=== PATIENT | female | born 1950 | race Caucasian/White ===

== ENCOUNTER 2023-05-03 06:00 | Day surgery (SDC) | payer MEDICARE, OTHER ==
[2023-04-26 14:36] VITALS: BP 145/84
[~2023-05-03] VITALS: Ht 165.1 cm; Wt 76.4 kg
--- NOTE | ~2023-05-03 | OR ---
[facility] [address] [place], [place] [address] Draft DATE OF OPERATION: 05/03/2023 SURGEON: Garrett Zazueta DPM PREOPERATIVE DIAGNOSES: 1. Mechanical complication of internal fixation or displaced screws of the right foot. 2. Malunion, displaced fracture of the first metatarsal bone. POSTOPERATIVE DIAGNOSES: 1. Mechanical complication of internal fixation or displaced screws of the right foot. 2. Malunion, displaced fracture of the first metatarsal bone. PROCEDURE: 1. Removal of deep internal fixation devices. 2. ORIF of first metatarsal malunion fracture with locking screws and plate. [employer]SPORT DRIVER: Jamil Anaya DPM. ANESTHESIA: Local with MAC consisting of 10 mL of 0.5% ropivacaine and 2% lidocaine plain injected about the patient's right first metatarsal. HEMOSTASIS: With an ankle tourniquet. ESTIMATED BLOOD LOSS: Less than 5 mL or minimal. MATERIALS USED: Optium DBM putty 1 mL. 2.5 Kathia locking plate with screws of various length. 3-0 Vicryl, 4-0 Vicryl, 5-0 nylon. PROCEDURE IN DETAIL: The patient was brought into the operating room and placed upon the operating table in the supine position. After IV sedation, the above local anesthesia was administered around the patient's right medial foot. The right foot was then scrubbed, prepped, and draped in the usual sterile technique. Esmarch bandage was then utilized to exsanguinate the patient's right foot and then left wrapped around the ankle to act as tourniquet. Attention was then directed to the dorsal medial aspect of the first PATIENT NAME: JOHNATHAN HERNANDEZ OPERATIVE REPORT DATE OF : 48 REPORT #: [id number] PHYSICIAN: GARRETT ZAZUETA DPM PCP: NO PRIMARY CARE PHYSICIAN REPORT IS CONFIDENTIAL AND NOT TO BE RELEASED WITHOUT AUTHORIZATION [facility] [address] [place], [place] [address] Draft metatarsophalangeal joint, where a #15 blade was utilized to perform a skin incision down to subcutaneous tissue. This followed the original surgical site that was performed previously. The incision was then deepened through the subcutaneous tissue down to level of joint capsule utilizing #64 blade. Linear capsulotomy was then performed within the joint capsule and the joint capsule was reflected off the dorsal medial lateral aspect of the first metatarsophalangeal joint and the proximal first metatarsal. On reflection of the joint capsule and the deep soft tissue, 2 cannulated screws became visible. One was elevated above the surrounding surface of bone by approximately 4 mm. The other one appeared to be still well seated within the cortex of the bone with mild bony overgrowth present. Rongeur was then utilized to remove the excess bone growth on the screw that was well seated. Both screws were then removed utilizing a screwdriver and forceps to retrograde the screws out. Next, the soft tissue was freed a little more from around the end of the first metatarsal and a McGlamry elevator was utilized to free soft tissue from around the first metatarsal head. Inspection of the bone at this time found a bony malunion present at the fracture location. The head of the first metatarsal had been rotated superiorly to bring the articular surface more dorsal. Also, shortening of the first metatarsal appeared to be evident. Sagittal saw was then utilized to find the previous osteotomy sites in the areas where bony union had started to occur. This was then freed from medial to lateral, thus freeing the capital fragment. Upon freeing of the capital fragment, the first metatarsal head was repositioned into a more corrected rectus position. This created a small gap on the dorsal distal aspect of the main metaphyseal region of the first metatarsal. K-wire was then driven from distal to proximal to act as temporary fixation and to hold the first metatarsal head in the corrected rectus position. Positioning was verified through intraoperative fluoroscopy. Bony putty was then utilized to fill a gap again on the dorsal and distal aspect of the shaft of the first metatarsal between it and the head. Next, a 2.5 mm locking plate was then placed over the fracture site area. The plate was slightly bent and trimmed as needed to obtain good fixation. Next, following standard AO fixation techniques, 2.5 locking screws and 1 nonlocking screw were then driven into the head and shaft of the first metatarsal to provide good stability and to help maintain the correction. Again, positioning and screw length were verified via intraoperative fluoroscopy. The area was flushed with copious amounts of sterile normal saline with care not to flush out the bone graft material. Small note that with predrilling the areas, there was a little bit of metallic residue that appeared to occur with drilling. We made sure that it was flushed out with sterile normal saline as well. Upon completion of the fixation, good stability was achieved. The head of the first metatarsal was now in a corrected position, better in length and also in normal slightly plantar flexed or rectus position. Because of the corrective position of the first metatarsal that was achieved, an osteotomy of the second metatarsal was not performed at this time. Surgical site was then closed with 3-0 Vicryl in the deep soft tissue and joint capsule, 4-0 Vicryl in the subcutaneous tissue area, and then 5-0 nylon was utilized to close and reapproximate the integument PATIENT NAME: JOHNATHAN HERNADNEZ OPERATIVE REPORT DATE OF : 48 REPORT #: [id number] PHYSICIAN: GARRETT ZAZUETA DPM PCP: NO PRIMARY CARE PHYSICIAN REPORT IS CONFIDENTIAL AND NOT TO BE RELEASED WITHOUT AUTHORIZATION [facility] [address] [place] [id number] Draft in the interlocking suture stitch technique. Postoperative injection consisting of a mixture of 9 mL of 0.5% ropivacaine and 1 mL of dexamethasone phosphate was injected about the surgical site. Only half or 5 mL of this mixture was utilized. Postoperative dressing consisting of silver foam was placed directly in contact with the surgical site, followed by fluffed gauze, rolled gauze, Kerlix, and Coban. The ankle tourniquet was removed, prompt hyperemic response was noted to all digits of the patient's right foot. An additional dressing was then applied up to calf of the patient's right lower extremity. The patient was escorted to the recovery area with vital signs stable and cap refill time being less than 3 seconds to all digits. The patient had tolerated both the procedure and the anesthesia well. Following a period of postoperative time, the patient was discharged to home with both written and oral instructions. JANA [id number] /[id number] Copies: ~ PATIENT NAME: JOHNATHAN HERNANDEZ OPERATIVE REPORT DATE OF : 48 REPORT #: [id number] PHYSICIAN: GARRETT ZAZUETA DPM PCP: NO PRIMARY CARE PHYSICIAN REPORT IS CONFIDENTIAL AND NOT TO BE RELEASED WITHOUT AUTHORIZATION
[~2023-05-03 06:00] MED LIST: DARIFENACIN ER15 MG PO; DEXILANT60 MG PO; NP THYROID90 MG PO; PEPCID40 MG PO; PRAVASTATIN SOD20 MG PO
[2023-05-03 06:15] VITALS: BP 109/67
[2023-05-03] MEDS ORDERED: DOXYCYCLINE HY100 MG PO (06:17)
[2023-05-03 10:38] VITALS: BP 112/68
--- NOTE | 2023-05-03 10:50 | NUR ---
05/03/23 1050 Latoya Goodwin 3563 PT ARRIVED IN PACU WIDE AWAKE WITH NO C/O'S. R FOOT ELEVATED ON PILLOWS. [address] AT BEDSIDE. 1015 PT SITTING UP IN BED SIPPING ON WATER. 1020 TO DS TO GET DRESSED WITH STAND BY ASSIST. 1025 DC INSTRUCTIONS GIVEN. ALL QUESTIONS ANSWERED. LEFT VIA W/C.
== END 2023-05-03 10:25 | disposition home or self-care (01) ==
LOC: DS 06:00
PROVIDERS: ATTEND Podiatrist Foot & Ankle Surgery
PROC: 0QPN04Z Removal of Internal Fixation Device from Right Metatarsal, Open Approach (ICD-10-PCS; principal; 2023-05-03 07:30)
PROC: 0QSN04Z Reposition Right Metatarsal with Internal Fixation Device, Open Approach (ICD-10-PCS; 2023-05-03 07:30)
DX: S92.311P Displaced fracture of first metatarsal bone, right foot, subsequent encounter for fracture with malunion (principal); T84.098A Other mechanical complication of other internal joint prosthesis, initial encounter; Y79.2 Prosthetic and other implants, materials and accessory orthopedic devices associated with adverse incidents; Y83.8 Other surgical procedures as the cause of abnormal reaction of the patient, or of later complication, without mention of misadventure at the time of the procedure; Z91.040 Latex allergy status; X58.XXXD Exposure to other specified factors, subsequent encounter
CPT/HCPCS: 73620; 73630; J0690; J1100; J2001; J2704; J2795; J3010; J7121